=== PATIENT | male | born 1990 | race Caucasian/White ===

== ENCOUNTER 2025-03-22 17:55 | Emergency (ER) | payer OTHER, SELFPAY ==
[2025-03-22 18:07] VITALS: BP 150/91; PULSE 93; RESP 16; TEMP 36.7; O2SAT 100
--- NOTE | 2025-03-22 18:22 | ED_ITS ---
HPI - URI/Sore Throat General Chief Complaint: Upper Respiratory Infection Stated Complaint: Chills/Cough/Sore Throat Time Seen by Provider: 03/22/25 18:22 Source: patient Mode of arrival: ambulatory Limitations: no limitations History of Present Illness HPI Narrative: Omar is a 34-year-old male patient presenting to the clinic today with complaints of feeling feverish, chills, cough, sore throat, and body aches x1 day. Has taken DayQuil NyQuil for his symptoms. Denies any chest pain or shortness of breath. Related Data Home Medications ?Medication ?Instructions ?Recorded ?Confirmed ?Last Taken ?Type No Home Medications 03/22/25 03/22/25 U nknown History Allergies Allergy/AdvReac Type Severity Reaction Status Date / Time No Known Allergies Allergy Verified 03/22/25 17:57 Review of Systems Review of Systems: Pertinent positives per HPI. Patient denies any rash, headache, visual changes, dizziness, shortness of breath, chest pain, palpitations, nausea, vomiting, diarrhea, constipation, abdominal pain, or any urinary issues. PMFSH Comments At the time of my signature, I reviewed and agree with the nursing past medical, surgical, social, and family history. There is no relevant family history pertinent to the patient complaint. Exam Narrative: General: Well-developed, well nourished, in no apparent distress Head: Normocephalic, atraumatic Eyes: Pupils equally round and reactive to light bilaterally, EOM intact, sclera and conjunctive clear, no discharge, lids normal Ears: TMs intact and clear, ear canals clear, no drainage, grossly hearing normal. Nose: Nares patent, clear discharge, mild inflammation, no sinus tenderness. Mouth: Oral pharynx mildly red without lesions or masses, good dentition, MMM. Neck: Supple, trachea midline, no enlargement of anterior or posterior cervical nodes, no thyroid masses or goiter palpable. Cardio: Regular rate and rhythm, s1 and s2 normal, no murmur appreciated. Resp: Clear to auscultation bilaterally, no rhonchi, rales, wheezing or rubs Course Course Level of Care: Express Care Visit Vital Signs Vital signs: Vital Signs Temperature 36.7 C 03/22/25 18:07 Pulse Rate 93 03/22/25 18:07 Respiratory Rate 16 03/22/25 18:07 Blood Pressure 150/91 H 03/22/25 18:07 Pulse Oximetry 100 03/22/25 18:07 Oxygen Delivery Room Air 03/22/25 18:07 Temperature 36.7 C 03/22/25 18:07 Pulse Rate 93 03/22/25 18:07 Respiratory Rate 16 03/22/25 18:07 Blood Pressure 150/91 H 03/22/25 18:07 Pulse Oximetry 100 03/22/25 18:07 Oxygen Delivery Room Air 03/22/25 18:07 MDM MDM Narrative Medical decision making narrative: At the time of visit patient is resting comfortably on the exam table. Patient appears to be nontoxic. complaints of feeling feverish, chills, cough, sore throat, and body aches x1 day. Has taken DayQuil NyQuil for his symptoms. Denies any chest pain or shortness of breath. On exam patient has bilateral TMs intact and clear, ear canals ceruminous, oropharynx mildly red with postnasal drip, clear nasal drainage, no anterior turbinate inflammation, no sinus tenderness, no cervical lymphadenopathy, lung sounds are clear, heart rates regular rate and rhythm. COVID, flu, and strep test were ordered. Labs: COVID, influenza, and strep test were performed. All testing was negative. We will send strep for culture. Plan: I suspect patient has URI/pharyngitis/viral syndrome. Supportive measures were discussed with the patient and they voiced understanding discharge instructions and agrees to treatment plan. Return precautions reviewed Differential Diagnosis Differential Diagnosis: Differential diagnostic considerations for upper respiratory infection include upper respiratory infection, croup, otitis media, sinusitis, viral infection, bronchitis, influenza, pharyngitis, strep, uvulitis. Lab Data Labs: Lab Results 03/22/25 Range/Units 18:25 POC Grp A Strep Screen Negative (Negative) Discharge Plan Discharge Clinical Impression: Viral infection Upper respiratory infection Qualifiers: URI type: unspecified URI Qualified Code(s): J06.9 - Acute upper respiratory infection, unspecified Pharyngitis Qualifiers: Pharyngitis/tonsillitis etiology: unspecified etiology Qualified Code(s): J02.9 - Acute pharyngitis, unspecified Patient Disposition: Home Condition: Stable Instructions: Antibiotic Form, Pharyngitis (ED), Viral Syndrome (ED), Cold Symptoms (ED) Additional Instructions: COVID, influenza and strep test were all negative in the clinic today. We will send strep for culture if this comes back positive we will contact him place you on antibiotics at that time. May take DayQuil/NyQuil for cold/flu symptoms Increase fluids and stay well hydrated May take Tylenol or motrin as directed on bottle for pain/fever May use Flonase 1 spray in each nare daily May take OTC antihistamines such as Zyrtec or Claritin daily as directed on bottle May apply Vicks vapor rub to chest to open sinuses Sinus rinses for congestion Cepacol spray, cough drops, throat lozenges, warm tea with honey/lemon, gargle salt water to soothe throat BRAT diet for diarrhea Clear liquids x 24 hours then advance as tolerated for nausea/vomiting Go to the ED if you develop a worsening in your condition- high fever not controlled by Tylenol or Motrin, dehydration, weakness, lethargy, shortness of breath, or chest pain. Follow up with your PCP in 3-5 days if symptoms persist. Patient Language: [place] Citizen Prescriptions: No Action No Home Medications Follow-up/Referrals: PHYSICIAN,NEEDLE LEADER [Primary Care Provider, Internal Medicine] Stand Alone Forms: Work/School Release IP Time of Disposition: 18:34 Quality NIHSS Nursing Documentation ED NIHSS nursing documentation: reviewed/agree
[2025-03-22 18:28] LABS: EDSTREPNEGPOS1 Negative (Negative)
[2025-03-22 18:41] LABS: EDCOVIDSCREEN Negative (Negative); EDINFLUASCREEN Negative (Negative); EDINFLUBSCREEN Negative (Negative)
== END 2025-03-22 18:39 | disposition home or self-care (01) ==
PROVIDERS: Emergency Provider Nurse Practitioner Family
DX: J06.9 Acute upper respiratory infection, unspecified (principal); B97.89 Other viral agents as the cause of diseases classified elsewhere; Z20.822 Contact with and (suspected) exposure to COVID-19
CPT/HCPCS: 87081; 87426; 87804; 87880; 99203; G0463